=== PATIENT | female | born 1995 | race Caucasian/White ===

== ENCOUNTER → 2025-02-06 | Outpatient (CLI) | payer OTHER, SELFPAY ==
--- OUTSIDE RECORDS SUMMARY | 2025-02-06 12:08 | XMS RPT_ITS | CCD ---
Author Organization [facility] Inform ion Partnership [facility] Care Team Providers Care Mental Retardation Nurse Name Role Phone AMAN MALAVE Unavailable Unavailable FitzLoren mccall Unavailable Saundra Kaufman Unavailable Unavailable Gagandeep Babb MD Primary Care Provider Gagandeep Babb MD Primary Care Provider Gagandeep Babb MD Primary Care Provider KOURTNEY CHAVARRIA Attending Unavailable GAGANDEEP BABB Primary Care Unavailable HENRRY SIMS Referring Unavailable GAGANDEEP BABB Primary Care Unavailable HENRRY SIMS Attending Unavailable GAGANDEEP BABB Primary Care Unavailable Medications Current Medications Medication Drug Class(es) Dates Sig (Normalized) Sig (Original) busPIRone hydrochloride 30 mg oral tablet (5 sources) Start: 02-20-2021 busPIRone HCl 30 mg tablet Takes 10mg twice daily 02/20/2021 Active Comment on above: Takes 10mg twice nicolasa ly levonorgestrel 0.534196 mg/hr intrauterine system (10 sources) Progestin, Progestin-containi ng Intrauterine Device Start: 04-01-2020 End: 03-31-2025 levonorgestrel (MIRENA) 20 mcg/24 hours (5 yrs) 52 mg IUD Indications: Encounter for IUD insertion 1 Each by INTRAUTERINE route as directed. 1 Each 0 04/01/2020 03/31/2025 Active Comment on above: 1 Each by INTRAUTERI NE route as directed. 1 Each by INTRAUTERI NE route one time only. SUMAtriptan 100 mg oral tablet (5 sources) Serotonin-1b and Serotonin-1d Receptor Agonist SUMAtriptan (IMITREX) 100 mg tablet Take 100 mg by mouth as needed. Active Comment on above: Take 100 mg by mouth as needed. Problems Active Problems Problem Classification Problem Date Documented Da te Episodic/Chronic Immunizations and screening for infectious disease (5 sources) Contact with and (suspected) exposure to other viral communicable diseases; Translations: [Patient encounter status] Onset: 01-10-2025 01-02-2020 Episodic Joint disorders and dislocations; trauma-related (1 source) Derangement of medial meniscus due to injury of knee; Translations: [Derangement of unspecified medial meniscus due to old tear or injury, right knee] 02-08-2024 Chronic Other non-traumatic joint disorders (1 source) Pain in right knee; Translations: [Pain in joint, lower leg] 02-08-2024 Episodic Other non-traumatic joint disorders (1 source) Effusion of right knee joint; Translations: [Effusion, right knee] 02-08-2024 Episodic Other screening for suspected conditions (not mental disorders or infectious disease) (2 sources) Cancer cervix screening status; Translations: [Encounter for screening for malignant neoplasm of cervix] Onset: 01-10-2025 01-10-2025 Episodic Residual codes; unclassified (1 source) Pain; Translations: [Pain, unspecified] 02-08-2024 Episodic Unclassified (1 source) Laceration without foreign body of left ear, initial encounter / S01.312A(ICD-10) Onset: 05-19-2017 Unclassified (1 source) Unknown / UNK(Unknown) Onset: 05-19-2017 Unclassified (1 source) Laceration / [id number]() Onset: 05-19-2017 Past or Other Problems Problem Classification Problem Date Documented Da te Episodic/Chronic Other injuries and conditions due to external causes (1 source) Laceration - injury; Translations: [Laceration] Onset: 05-19-2017 Episodic Residual codes; unclassified (1 source) Pain, unspecified; Translations: [Pain] Onset: 02-08-2024 Episodic Unclassified (1 source) Laceration without foreign body of left ear, initial encounter; Translations: [Laceration without foreign body of left ear, initial encounter] Onset: 05-19-2017 Unclassified (1 source) laceration to left ear Onset: 05-19-2017 Unclassified (1 source) Exposure to SARS virus Results Test Name Value Interpretation Reference Range Facility [facility] 01-10-2025 CNOV Office Visit (OBGYWM ) KACEY ALLISON ([id number]) 1995 F Date Time Provider Department 01/10/25 2:20 PM KOURTNEY CHAVARRIA During your visit today, we recorded the following information about you: Blood pressure Weight Height 112/78 76.7 kg 1.702 m Kourtney Chavarria MD 01/10/2025 4:55 PM Signed Director Community Organization offered: Patient declines. Kacey is a 29 year old who presents for an annual gynecologic exam without complaints. Age at Menarche: 16 Still get period: No, mirena iud Menses: no menses - Mirena IUD Menstrual flow: N/A Bleeding amount bothersome: N/A Bleeding between periods: N/A Period symptoms: Acne, Breast tenderness, Cramps, and Mood change Sexually active: Yes Time with current partner: N/A Contraception: IUD Contraception frequency: Always HPV vaccine: Yes HPV:N/A Last pap smear: 04/23/2021, normal History of abnormal pap: No Colposcopy: No. Leep: No. Cone biopsy: No. Bothersome pelvic pain: No Last mammogram: never OB History Gravida0 Para0 Term0 Preterm0 AB0 Living0 SAB0 IAB0 Ectopic0 Multiple0 Live Births0 Manager Drug History LMP: 04/24/2015, IUD Age at Menarche: Age at First : Age at Menopause: Manager Drug History Comments: Sexual Activity: Yes; Male; Mirena 04/01/2020 Contraception: I.U.D. PAST MEDICAL HISTORY Diagnosis Date Migraine PAST SURGICAL HISTORY Procedure Laterality Date INSERTION OF IUD 04/01/2020 PAST SURGICAL HISTORY OF surgery on both feet in 7th grade FAMILY HISTORY Problem Relation Age of Onset None Mother None Father No Known Problems Sister No Known Problems Brother SOCIAL HISTORY Social History Tobacco Use Smoking status: Never Smokeless tobacco: Never Vaping Use Vaping status: Never Used Substance Use Topics Alcohol use: Yes Drug use: No REVIEW OF SYSTEMS Abdomen: No abdominal pain, nausea, vomiting, diarrhea, or constipation. Bladder: No dysuria, gross hematuria, urinary frequency, urinary urgency, or incontinence. Breast: No breast lumps, nipple d/c, overlying skin changes, redness or skin retraction. Allergies and current medication updated:Yes SENSITIVE EXAM: The sensitive examination was discussed with the Patient or Patient's Authorized Vacuum Plastic Forming Machine Operator. As applicable, any other physician, advance practice provider, medical student, or other health professional student that will be observing or involved in the sensitive examination for educational or training purposes was discussed with the Patient or Authorized Vacuum Plastic Forming Machine Operator. The Patient or Authorized Vacuum Plastic Forming Machine Operator has agreed to proceed with the sensitive examination. (Sensitive examination includes inspection and/or palpation of the breasts, pelvis, prostate and anorectal regions). EXAM: BP 112/78 Ht 5' 7 (1.70m) Wt 169 lb 3.2 oz (76.7kg) LMP 04/24/2015 BMI 26.49 kg/(m2). GENERAL: pleasant, female in no apparent distress HEENT: Normocephalic and atraumatic NECK: full range of motion DERMATOLOGY: Normal, without lesions, non-icteric, and non-hirsute BREAST: soft, non-tender, symmetric, no dominant mass, normal nipple-areolar complex, no lymphadenopathy, and no nipple discharge CHEST: Normal inspiratory effort ABDOMEN: soft, non-tender, and no masses PELVIC: external genitalia normal, normal Bartholin's glands, urethra, [place]'s glands, no vulvar lesions, no cervical lesions, good vaginal support, physiologic discharge present, normal appearing perineal body and perianal region, IUD strings visible BIMANUAL: uterus normal size, shape and consistency, no adnexal masses, and non-tender RECTOVAGINAL: deferred. NEURO: exam grossly non-focal EXTREMITIES: normal ASSESSMENT/PLAN: 1) Health maintenance: Pap done with reflex HPV. Nutrition, exercise and routine health maintenance exams reviewed. HPV vaccine: completed series 2) Contraception: IUD. Contraceptive options reviewed and information provided. 3) STD screening: Declined STD check. 4) Follow up one year or sooner as needed Kourtney Chavarria DO Allergies As of Date: 01/10/2025 (No Known Allergies) Date Reviewed: 01/10/2025 Reviewed by: Ingrid Palacios MA - Fully Assessed Reason for Visit: Well Woman [1463] Primary Visit Diagnosis:Encounter for gynecological examination (general) (routine) without abnormal findings [Z01.419] Other Visit Diagnoses:Screening for cervical cancer [Z12.4] Encounter for screening for human papillomavirus (HPV) [Z11.51] Order(s):PAP TEST [[id number]] Order #: [id number]. #:[id number] Prescriptions as of 01/10/2025 - busPIRone HCl 30 mg tablet Takes 10mg twice daily - levonorgestrel (MIRENA) 20 mcg/24 hours (5 yrs) 52 mg IUD 1 Each by INTRAUTERINE route as directed. - levonorgestrel (MIRENA) 20 mcg/24 hr (5 years) IUD 1 Each by INTRAUTERINE route one time only. - SUMAtriptan (IMITREX) 100 mg tab (more content not included)... Normal [facility] PAP TESTon 01-10-2025 ADEQUACY Normal [facility] Comment on above: Order Comment: Speci men Type: FLUID SPECIMEN Ordering Facility: [facility] Address: [address] [place] [address] Result Comment: Sati sfactory for interpretation. Transformation zone present Performed By: #### L [id number] #### [facility] CLIA [id number] [address] [place] [address] [place] CASE REPORT Normal [facility] Comment on above: Order Comment: Speci men Type: FLUID SPECIMEN Ordering Facility: [facility] Address: [address] [place] [address] Result Comment: Gyne cologic Cytology Report Case: [id number] Authorizing Provider: Kourtney Chavarria MD Collected: 01/10/2025 03:00 PM Ordering Location: OB/Gynecology Received: 01/10/2025 04:42 PM First Screen: Don Kaur, CT, ASCP Specimen: Pap Test, ThinPrep, Cervix Performed By: #### L [id number] #### [facility] CLIA [id number] [address] [place] [address] [place] CLINICAL HISTORY, CYTOLOGY, METAL MINER BLASTING Intra Uterine Device, No Menses Normal [facility] Comment on above: Order Comment: Speci men Type: FLUID SPECIMEN Ordering Facility: [facility] Address: [address] [place] [address] Performed By: #### L [id number] #### [facility] CLIA [id number] [address] [place] [address] [place] FINAL PERFORMING LAB Normal [facility] Comment on above: Order Comment: Speci men Type: FLUID SPECIMEN Ordering Facility: [facility] Address: [address] [place] [address] Result Comment: Tech nical component, skidway man screening performed at: [facility], [address] [place] [address] CLIA: [id number] Diagnostic interpretation performed at: [facility], [address] [place] [address] CLIA# [id number] Laborer Tin Can: Kurtis Acuña MD Performed By: #### L [id number] #### [facility] CLIA [id number] [address] [place] [address] [place] INTERPRETATION, CYTOLOGY, METAL MINER BLASTING Normal [facility] Comment on above: Order Comment: Speci men Type: FLUID SPECIMEN Ordering Facility: [facility] Address: [address] [place] [address] Result Comment: Nega tive for intraepithelial lesion or malignancy. at 0849 EDT Performed By: #### L [id number] #### [facility] CLIA [id number] [address] [place] [address] [place] PAP DISCLAIMER COMMENT The Pap Smear is a screening test for cervical cancer. False negative results occur with all screening tests, emphasizing the need for rescreening at recommended intervals, and clinical correlation. Normal [facility] Comment on above: Order Comment: Speci men Type: FLUID SPECIMEN Ordering Facility: [facility] Address: [address] [place] [address] Performed By: #### L [id number] #### [facility] CLIA [id number] [address] [place] [address] [place] PAP OVERNIGHT CAREGIVER COMMENT This specimen has been analyzed by the FDA-approved [employer]TM System, which uses digital imaging and an enhanced artificial intelligence image analysis algorithm to identify villegas of interest on the microscopic slide, to assist the clinical data coordinator and pathologist in evaluating cells on ThinPrep Pap tests. Following analysis, villegas of interest on the microscopic slide selected by the algorithm are reviewed by a clinical data coordinator. If a sample requires hierarchical review, the pathologist will review the same villegas of interest selected by the algorithm prior to final interpretation. Normal [facility] Comment on above: Order Comment: Speci men Type: FLUID SPECIMEN Ordering Facility: [facility] Address: [address] [place] [address] Performed By: #### L [id number] #### [facility] CLIA [id number] [address] [place] [address] [facility] 02-08-2024 CNOV Office Visit (ORTHSO ) KACEY ALLISON ([id number]) 1995 F Date Time Provider Department 02/08/24 5:25 PM HENRRY SIMS ORTHSO During your visit today, we recorded the following information about you: Henrry Sims PA-C 02/09/2024 12:29 AM Signed [facility] CHIEF COMPLAINT(CC): Right knee HISTORY OF PRESENT ILLNESS (HPI): PAIN EVALUATION 02/08/2024 1748 Pain Level: 3 Pain Location: Knee-Right Description: Sharp Duration Amount of Time: 3 Duration Units: Weeks Frequency: Continuous Intervention/Comfort measure: -- ice Patient is a 28 year old female who presents to [facility] today with complaint of right knee pain that started 3 weeks ago with no injury. Patient denies prior injury, surgery, trauma to this area. They have not been seen yet for this complaint. Patient denies numbness, tingling, weakness, buckling, popping, catching or giving out of involved joint. Patient denies bruising, warmth, redness, mild swelling. Patient complains of discomfort at medial right knee and increased with prolonged walk, stair negotiaition. Patient reports that they have tried ice, rest, stretch,Ibuprofen, with some relief. REVIEW OF SYMPTOMS (ROS): Constitutional: Any recent fevers? No Cardiovascular: Any chest pain? No Respiratory: Any shortness or breath? No Gastrointestinal: Any abdominal discomfort? No Integumentary: Any recent skin changes or rashes? No Neurologic: Any numbness or tingling? See Above Endocrine: Any diagnosis of diabetes? No Hematologic: Any recent bleeding episodes? No MEDICAL HISTORY: PAST MEDICAL HISTORY No date: Migraine PHYSICAL EXAMINATION: Patient's vitals and nursing notes were reviewed. Vitals: [facility] 04/24/2015 Skin: Skin color, texture, turgor normal, no suspicious rashes or lesions noted Psychiatric: mood and affect are appropriate, patient is oriented to time, place and person General Appearance: Well appearing, alert, in no acute distress, well-hydrated, and well nourished Cardiovascular: pedal pulses normal, no signs of upper or lower extremity edema Respiratory: no respiratory distress, no audible wheezing, no labored breathing, symmetric thoracic excursion Neurologic: no pathologic reflexes, sensation is grossly intact Lymphatic: no lymph node enlargement noted in the examined area Knee Examination Right Knee Skin No evidence of eythema, warmth, bruising, abrasions, scars, swelling, atrophy,masses or deformity about bilateral lower extremities. Effusion No effusion Alignment normal Range of motion Normal range of motion Quadriceps examination full (5/5) quadriceps strength bilaterally without signs of atrophy Patellar examination Normal patellar mobility Tenderness medial joint line Meniscus Postive medial Dl's/Thessaly's testing Stability Collateral and cruciate knee ligaments (ACL/PCL/LCL/MCL) are all intact with no significant laxity noted bilaterally Additional Testing no significant restriction in hip range of motion and no contribution to the knee complaints today Heel walking and Toe walking are WNL. IMAGING: Final results and radiologist's interpretation, available in the [facility] health record. Images were reviewed with the patient/family members in the office today. My personal interpretation of the performed imaging is no acute bony abnormality. IMPRESSION: No acute radiographic findings. 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 Gentle AROM and stretching as tolerated. Voltaren gel topically for inflammation Physical Therapy eval and treat Ortho follow up with me in 1 month as needed. Detailed instructions were reviewed with the patient and all questions were answered in detail. Patient voiced understanding and compliance with the above plan. We discussed emergent need to return to the express care or go to the emergency department. We discussed red flags associated with this condition and emergent treatment if they present. BOUBACAR Lucas, Henrry Barron PA-C 02/08/2024 6:11 PM Signed Thank you for trusting us with the care of your sports medicine injury/needs. Today we discussed your condition and next steps in management. You have been diagnosed with a knee sprain. KNEE SPRAIN (GENERAL) You have been seen for a knee sprain. A sprain is an injury to a ligament, which is a type of connective tissue (soft tissue). A sprain varies depending on severity of injury and is usually a tear or partial tear of the ligament. Sprains can (more content not included)... Normal [facility] XR KNEE 4V AP/PA BOTH+LAT/ME R RTon 02-08-2024 XR KNEE 4V AP/PA BOTH+LAT/MICHELE RT * * *Final Report* * * DATE OF EXAM: Feb 08 2024 5:43PM SOX 5203 - XR KNEE 4V AP/PA BOTH+LAT/MICHELE RT / PROCEDURE REASON: Pain * * * * Physician Interpretation * * * * EXAMINATION: XR KNEE 4V AP/PA BOTH+LAT/MICHELE RT HISTORY: pain at the medial aspect of the right knee/no injury Pain . TECHNIQUE: XR KNEE 4V AP/PA BOTH+LAT/MICHELE RT Laterality: RIGHT Number of different views (projections): 4 M: XB_1 COMPARISON: RESULT: Normal right knee joint spaces. Small to moderate right knee joint effusion. No acute bone destruction. No acute fracture or dislocation. There are no bony erosions. IMPRESSION: No acute radiographic findings. Supervisor [employer] Farming: [facility] Transcribe Date/Time: Feb 08 2024 5:44P Dictated by : ANGIE ANDERSON MD This examination was interpreted and the report reviewed and electronically signed by: ANGIE ANDERSON MD on Feb 08 2024 5:45PM EST [id number] Normal [facility] XR Knee - right 4 Viewson IMPRESSION: No acute radiographic findings. Supervisor [employer]: PSCB Transcribe Date/Time: Feb 08 2024 5:44P Dictated by : ANGIE ANDERSON MD This examination was interpreted and the report reviewed and electronically signed by: ANGIE ANDERSON MD on Feb 08 2024 5:45PM EST DIVISION OF RADIOLOGY * * *Final Report* * * DATE OF EXAM: Feb 08 2024 5:43PM SOX 5203 - XR KNEE 4V AP/PA BOTH+LAT/MICHELE RT / PROCEDURE REASON: Pain * * * * Physician Interpretation * * * * EXAMINATION: XR KNEE 4V AP/PA BOTH+LAT/MICHELE RT HISTORY: pain at the medial aspect of the right knee/no injury Pain . TECHNIQUE: XR KNEE 4V AP/PA BOTH+LAT/MICHELE RT Laterality: RIGHT Number of different views (projections): 4 M: XB_1 COMPARISON: RESULT: Normal right knee joint spaces. Small to moderate right knee joint effusion. No acute bone destruction. No acute fracture or dislocation. There are no bony erosions. DIVISION OF RADIOLOGY Provider, [facility] - 02/08/2024 * * *Final Report* * * DATE OF EXAM: Feb 08 2024 5:43PM SOX 5203 - XR KNEE 4V AP/PA BOTH+LAT/MICHELE RT / PROCEDURE REASON: Pain * * * * Physician Interpretation * * * * EXAMINATION: XR KNEE 4V AP/PA BOTH+LAT/MICHELE RT HISTORY: pain at the medial aspect of the right knee/no injury Pain . TECHNIQUE: XR KNEE 4V AP/PA BOTH+LAT/MICHELE RT Laterality: RIGHT Number of different views (projections): 4 M: XB_1 COMPARISON: RESULT: Normal right knee joint spaces. Small to moderate right knee joint effusion. No acute bone destruction. No acute fracture or dislocation. There are no bony erosions. IMPRESSION IMPRESSION: No acute radiographic findings. Supervisor [employer]: NGOZI Transcribe Date/Time: Feb 08 2024 5:44P Dictated by : ANGIE ANDERSON MD This examination was interpreted and the report reviewed and electronically signed by: ANGIE ANDERSON MD on Feb 08 2024 5:45PM EST [facility] Radiology Study observation (narrative) [facility] XR Knee - right 4 ViewsOrder ed By: [facility] Provider on 02-08-2024 [facility] ic 2019 Novel Coronavirus (COVI D-19), VERONICA ([id number])Ordered By: Refrigeration Specialist on 01-02-20202018 Novel Coronavirus (COVID-19), VERONICA ([id number]) Not Detected Normal [facility] Work Phone: Comment on above: This test was develo ped and its performance characteristics determinedby [employer]. This test has not been FDA cleared orapproved. This test has been authorized by FDA under an Emergency UseAuthorization (EUA). This test is only authorized for the duration oftime the declaration that circumstances exist justifying theauthorization of the emergency use of in vitro diagnostic tests fordetection of SARS-CoV-2 virus and/or diagnosis of COVID-19 infectionunder section 564(b)(1) of the Act, 21 U.S.C. 360bbb-3(b)(1), unlessthe authorization is terminated or revoked sooner.When diagnostic testing is negative, the possibility of a falsenegative result should be considered in the context of a patient'srecent exposures and the presence of clinical signs and symptomsconsistent with COVID-19. An individual without symptoms of COVID-19and who is not shedding SARS-CoV-2 virus would expect to have anegative (not detected) result in this assay. PERFORMED BY: [employer] [facility] [id number] [facility] [place] [id number] Vital Signs Date Time Vital Sign Value Performing Clinician Heriberto buckley 01-10-2025 14:29-0400 Body height 170.2 cm Kourtney Chavarria MD Work Phone: [facility] 01-10-2025 14:29-0400 Body mass index (BMI) [Ratio] 26.5 kg/m2 Kourtney Chavarria MD Work Phone: [facility] 01-10-2025 14:29-0400 Body weight 76.75 kg Kourtney Chavarria MD Work Phone: [facility] 01-10-2025 14:29-0400 Diastolic blood pressure 78 mm[Hg] Kourtney Chavarria MD Work Phone: [facility] 01-10-2025 14:29-0400 Systolic blood pressure 112 mm[Hg] Kourtney Chavarria MD Work Phone: [facility] 05-30-2022 14:23-0500 Body height 168.9 cm Kourtney Chavarria MD Work Phone: [facility] 05-30-2022 14:23-0500 Body weight 81.74 kg Kourtney Chavarria MD Work Phone: [facility] 05-30-2022 14:23-0500 Diastolic blood pressure 74 mm[Hg] Kourtney Chavarria MD Work Phone: [facility] 05-30-2022 14:23-0500 Systolic blood pressure 110 mm[Hg] Kourtney Chavarria MD Work Phone: [facility] 02-02-2022 10:15-0400 Body weight 84.28 kg Kourtney Chavarria MD Work Phone: [facility] 02-02-2022 10:15-0400 Diastolic blood pressure 78 mm[Hg] Kourtney Chavarria MD Work Phone: [facility] 02-02-2022 10:15-0400 Systolic blood pressure 120 mm[Hg] Kourtney Chavarria MD Work Phone: [facility] Encounters Encounter Date Encounter Type Care Provider Facility Start: 01-10-2025 End: 01-10-2025 Patient encounter procedure Kourtney Chavarria MD Work Phone: OB/Gynecology Comment on above: Encounter for gyneco logical examination (general) (routine) without abnormal findings (Primary Dx); Screening for cervical cancer; Encounter for screening for human papillomavirus (HPV) Start: 01-10-2025 End: 01-10-2025 Patient encounter status Kourtney Chavarria MD Work Phone: [facility] Start: 01-10-2025 End: 01-10-2025 ambulatory KOURTNEY CHAVARRIA Facility:[facility] Start: 01-10-2025 Encounter for gynecological examination (general) (routine) without abnormal findings KOURTNEY CHAVARRIA [facility] Start: 02-08-2024 End: 02-08-2024 ambulatory HENRRY SIMS Facility:[facility] Start: 02-08-2024 End: 02-08-2024 Office outpatient new 30 minutes Henrry ONTIVEROS-C Work Phone: Orthopaedics Comment on above: Acute pain of right knee (Primary Dx); Derangement of medial meniscus of right knee 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; Effusion of knee joint right Start: 02-08-2024 End: 02-08-2024 Subsequent hospital visit by physician Esperanza [facility] Angelica Work Phone: Radiology Comment on above: Pain [R52] Start: 05-30-2022 End: 05-30-2022 Patient encounter procedure Kourtney Chavarria MD Work Phone: OB/Gynecology Comment on above: Encounter for gyneco logical examination (general) (routine) without abnormal findings (Primary Dx); Need for influenza vaccination Start: 05-30-2022 End: 05-30-2022 Patient encounter status Kourtney Chavarria MD Work Phone: OB/Gynecology Start: 02-02-2022 End: 02-02-2022 Patient encounter procedure Kourtney Chavarria MD Work Phone: OB/Gynecology Comment on above: Screen for STD (sexu ally transmitted disease) (Primary Dx) Start: 01-02-2020 End: 01-23-2020 Office outpatient visit 15 minutes Loren To [facility] Internal Medicine Start: 05-19-2017 End: 05-19-2017 Emergency department patient visit AMAN Nathan FRIEDA [facility] Procedures Date Procedure Procedure Detail Performing Clinician Start: 02-08-2024 Radiologic exam knee complete 4/more views Henrry Sims PA-C Work Phone: Start: 05-30-2022 INFLUENZA VACCINE QUADRIVALENT 6 MO - 64 YRS IM Kourtney Chavarria MD Work Phone: Plan of Treatment Date Care Activity Detail Author Start: 12-17-2028 Urine microalbumin profile DTaP,Tdap,Td Vaccine (4 - Tdap) [facility] Start: 03-03-2025 Influenza vaccination Influenza Vacc ine (#1) [facility] Start: 04-23-2024 PAP TESTING PAP TESTING [facility] Start: 04-23-2024 Screening for malign ant neoplasm of cervix Cervical Cancer Screening [facility] Start: 03-03-2024 Covid-19 Vaccine ( season) Covid-19 Vaccine ( season) [facility] Start: 03-03-2024 Covid-19 Vaccine ( season) Covid-19 Vaccine ( season) [facility] Start: 03-03-2024 Influenza vaccination Influenza Vacc ine (#1) [facility] Start: 03-03-2023 Covid-19 Vaccine ( season) Covid-19 Vaccine ( season) [facility] Start: 03-22-2022 COVID-19 VACCINE (3 - Booster for Pfizer series) COVID-19 VACCINE (3 - Booster for Pfizer series) [facility] Start: 03-03-2022 Influenza vaccination INFLUENZA (#1) [facility] Start: 02-02-2022 End: 04-04-2022 Hepatitis B virus surface Ab [Presence] in Serum by Immunoassay [facility] Work Phone: Comment on above: Expected: 02/02/2022 , Expires: 04/04/2022 Start: 02-02-2022 End: 04-04-2022 Hepatitis C virus Ab [Presence] in Serum [facility] Work Phone: Comment on above: Expected: 02/02/2022 , Expires: 04/04/2022 Start: 02-02-2022 End: 04-04-2022 HIV 1+2 Ab [Presence] in Serum or Plasma by Immunoassay [facility] Work Phone: Comment on above: Expected: 02/02/2022 , Expires: 04/04/2022 Start: 02-02-2022 End: 04-04-2022 SYPHILIS TOTAL W/REFLEX [facility] Work Phone: Comment on above: Expected: 02/02/2022 , Expires: 04/04/2022 Start: 02-02-2022 End: 04-04-2022 Trichomonas vaginalis Ag [Presence] in Genital specimen by Immunoassay [facility] Work Phone: Comment on above: Expected: 02/02/2022 , Expires: 04/04/2022 Start: 12-15-2021 COVID-19 VACCINE (3 - Booster for Pfizer series) COVID-19 VACCINE (3 - Booster for Pfizer series) [facility] Start: 07-03-2021 DEPRESSION ASSESSMENT DEPRESSION ASS ESSMENT [facility] Start: 10-26-2014 Hepatitis B Vaccine (1 of 3 - 19+ 3-dose series) Hepatitis B Vaccine (1 of 3 - 19+ 3-dose series) [facility] Start: 10-26-2014 Urine microalbumin profile DTAP,TDAP,TD (1 - Tdap) [facility] Start: 10-26-2013 Anxiety Screening Anxiety Screening [facility] Start: 10-26-2013 Depression Screening Depression Scre ening [facility] Start: 10-26-2009 PEDS TO ADULT TRANSITION ANNUAL ASSESSMENT PEDS TO ADULT TRANSITION ANNUAL ASSESSMENT [facility] Start: 2007 Adult depression screening assessment DEPRESSION SCREENING [facility] Start: 2007 PEDS TO ADULT TRANSITION INITIAL DISCUSSION PEDS TO ADULT TRANSITION INITIAL DISCUSSION [facility] Start: 1995 HEPATITIS B (1 of 3 - 3-dose series) HEPATITIS B (1 of 3 - 3-dose series) [facility] Chlamydia trachomatis+Neisseria gonorrhoeae DNA [Presence] in Unspecified specimen by VERONICA with probe detection GC/CHLAMYDIA DNA DET Lab Routine Screen for STD (sexually transmitted disease) 02/02/2022 10:50 AM EDT [facility] Work Phone: PAP TEST PAP TEST Lab Juan aston Encounter for gynecological examination (general) (routine) without abnormal findings Screening for cervical cancer Encounter for screening for human papillomavirus (HPV) 01/10/2025 3:00 PM EDT [facility] Work Phone: Immunizations Immunization Date Immunization Notes Care Provider Remy jackermelinda 05-15-2023 typhoid capsular polysaccharide vaccine Kourtney Chavarria MD Work Phone: [facility] 05-11-2023 influenza, injectabl e, quadrivalent, preservative free Kourtney Chavarria MD Work Phone: [facility] 05-11-2023 influenza virus vacc ine, unspecified formulation Henrry Sims PA-C Work Phone: [facility] 05-30-2022 influenza, injectabl e, quadrivalent, contains preservative Kourntey Chavarria MD Work Phone: [facility] 10-20-2021 COVID-19 original vaccine, age 12+ yr, monovalent (PFIZER-BIONTECH - MUSA TOP) Kourtney Chavarria MD Work Phone: [facility] 09-24-2021 COVID-19 original vaccine, age 12+ yr, monovalent (PFIZER-BIONTECH - MUSA TOP) Kourtney Chavarria MD Work Phone: [facility] 04-23-2021 influenza, injectabl e, quadrivalent, contains preservative Kourtney Chavarria MD Work Phone: [facility] Work Phone: 04-23-2020 influenza, injectabl e, quadrivalent, contains preservative Kourtney Chavarria MD Work Phone: [facility] 04-24-2019 Influenza, injectabl e, Madin Megha Canine Kidney, preservative free, quadrivalent Kourtney Chavarria MD Work Phone: [facility] 12-17-2018 tetanus and diphther ia toxoids, adsorbed, preservative free, for adult use (2 Lf of tetanus toxoid and 2 Lf of diphtheria toxoid) Kourtney Chavarria MD Work Phone: [facility] 04-10-2018 influenza, injectabl e, quadrivalent, preservative free Kourtney Chavarria MD Work Phone: [facility] 04-06-2017 influenza, seasonal, injectable Kourtney Chavarria MD Work Phone: [facility] 05-08-2016 influenza, injectabl e, quadrivalent, preservative free Kourtney Chavarria MD Work Phone: [facility] 04-10-2015 influenza, seasonal, injectable, preservative free Kourtney Chavarria MD Work Phone: [facility] 01-14-2014 meningococcal polysaccharide (groups A, C, Y and W-135) diphtheria toxoid conjugate vaccine (MCV4P) Kourtney Chavarria MD Work Phone: [facility] 11-07-2008 diphtheria, tetanus toxoids and acellular pertussis vaccine, unspecified formulation Kourtney Chavarria MD Work Phone: [facility] 10-28-1997 varicella virus vaccine Kourtney Chavarria MD Work Phone: [facility] 07-11-1997 diphtheria, tetanus toxoids and acellular pertussis vaccine, unspecified formulation Kourtney Chavarria MD Work Phone: [facility] Payers Date Payer Category Payer Private Health Insurance [id number] 2023 Private Health Insurance [id number] 2021 Unknown 2021 Unknown [employer] PPO OOS [id number] 2021-Present [phone] [facility] [id number] [place] [address] PPO [id number] Self-pay SELF PAY INSURANCE [id number] Unknown [id number] Unknown SELF PAY INSURANCE [id number] [facility] [id number] Social History Date Type Detail Facility Tobacco smoking stat us NHIS Unknown if ever smoked [facility] Work Phone: Start: 1995 Sex Assigned At Female [facility] Work Phone: Start: 12-08-2014 End: 05-30-2022 Tobacco smoking status NHIS Never smoked tobacco [facility] Start: 12-08-2014 End: 05-30-2022 Tobacco use and exposure Smokeless tobacco non-user [facility] Start: 02-02-2022 End: 01-10-2025 Alcohol intake Current drinker of alcohol (finding) [facility] Start: 08-28-2019 History SDOH Alcohol Frequency 3 [facility] Start: 08-28-2019 History SDOH Social Connections Phone 4 [facility] Start: 08-28-2019 History SDOH Social Connections Get Together 5 [facility] Start: 08-28-2019 History SDOH Social Connections Holiness 1 [facility] Start: 08-28-2019 History SDOH Social Connections Living 7 [facility] Start: 1995 Sex Assigned At Not on file [facility] Start: 01-23-2022 End: 02-02-2022 Exposure to SARS-CoV-2 (event) Not sure [facility] Start: 08-28-2019 End: 01-10-2025 History of Social function [facility] Start: 08-28-2019 End: 01-10-2025 Social connection and isolation panel [facility] Do you belong to any clubs or organizations such as mandaeism groups, unions, fraternal or athletic groups, or school groups? Yes [facility] Are you now , , , , never or living with a partner? Never [facility] How often to you hav e a drink containing alcohol? 2-4 times a month [facility] How many standard dr inks containing alcohol do you have on a typical day? 5 or 6 [facility] How often do you hav e 6 or more drinks on 1 occasion? Monthly [facility] Do you feel stress - tense, restless, nervous, or anxious, or unable to sleep at night because your mind is troubled all the time - these days [OSQ] Not at all [facility] National Score (1-10 0), lower number is lower risk 34 [facility] Functional Status Date Assessment Result Facility 12-08-2014 Are you deaf, or do you have serious difficulty hearing No 12/08/2014 9:11 AM Mari Malone MA No [facility] 12-08-2014 Are you blind, or do you have serious difficulty seeing, even when wearing glasses No 12/08/2014 9:11 AM Mari Malone MA No [facility] 12-08-2014 Do you have serious difficulty walking or climbing stairs No 12/08/2014 9:11 AM EDMari Low MA No [facility] 12-08-2014 Do you have difficul ty dressing or bathing No 12/08/2014 9:11 AM Mari Malone MA No [facility] 12-08-2014 Because of a physica l, mental, or emotional condition, do you have difficulty doing errands alone such as visiting a physician's office or shopping No 12/08/2014 9:11 AM Mari Malone MA [facility] Mental Status Date Assessment Result Facility 12-08-2014 Because of a physica l, mental, or emotional condition, do you have serious difficulty concentrating, remembering, or making decisions No 12/08/2014 9:11 AM Mari Malone MA [facility] Clinical Notes 02-02-2022 to 01-10-2025 Kourtney Chavarria MD - 01/10/2025 2:26 PM EDTPHenrry Bowden PA-C - 02/08/2024 5:51 PM Ita [employer] - 02/08/2024 5:30 PM Nayely Chavarria MD - 05/30/2022 2:16 PM EST Note Date & Type Note Facility 01-10-2025 Note HNO ID: [id number] Author: KOURTNEY CHAVARRIA MD Service: ? Author Type: Physician Type: Progress Notes Filed: 01/10/2025 16:55 Note Text: Director Community Organization offered: Patient declines. Kacey is a 29 year old who presents for an annual gynecologic exam without complaints. Age at Menarche: 16 Still get period: No, mirena iud Menses: no menses - Mirena IUD Menstrual flow: N/A Bleeding amount bothersome: N/A Bleeding between periods: N/A Period symptoms: Acne, Breast tenderness, Cramps, and Mood change Sexually active: Yes Time with current partner: N/A Contraception: IUD Contraception frequency: Always HPV vaccine: Yes HPV:N/A Last pap smear: 04/23/2021, normal History of abnormal pap: No Colposcopy: No. Leep: No. Cone biopsy: No. Bothersome pelvic pain: No Last mammogram: never OB History Gravida0 Para0 Term0 Preterm0 AB0 Living0 SAB0 IAB0 Ectopic0 Multiple0 Live Births0 Manager Drug History LMP: 04/24/2015, IUD Age at Menarche: Age at First : Age at Menopause: Manager Drug History Comments: Sexual Activity: Yes; Male; Mirena 04/01/2020 Contraception: I.U.D. PAST MEDICAL HISTORY Diagnosis Date Migraine PAST SURGICAL HISTORY Procedure Laterality Date INSERTION OF IUD 04/01/2020 PAST SURGICAL HISTORY OF surgery on both feet in 7th grade FAMILY HISTORY Problem Relation Age of Onset None Mother None Father No Known Problems Sister No Known Problems Brother SOCIAL HISTORY Social History Tobacco Use Smoking status: Never Smokeless tobacco: Never Vaping Use Vaping status: Never Used Substance Use Topics Alcohol use: Yes Drug use: No REVIEW OF SYSTEMS Abdomen: No abdominal pain, nausea, vomiting, diarrhea, or constipation. Bladder: No dysuria, gross hematuria, urinary frequency, urinary urgency, or incontinence. Breast: No breast lumps, nipple d/c, overlying skin changes, redness or skin retraction. Allergies and current medication updated:Yes SENSITIVE EXAM: The sensitive examination was discussed with the Patient or Patient's Authorized Vacuum Plastic Forming Machine Operator. As applicable, any other physician, advance practice provider, medical student, or other health professional student that will be observing or involved in the sensitive examination for educational or training purposes was discussed with the Patient or Authorized Vacuum Plastic Forming Machine Operator. The Patient or Authorized Vacuum Plastic Forming Machine Operator has agreed to proceed with the sensitive examination. (Sensitive examination includes inspection and/or palpation of the breasts, pelvis, prostate and anorectal regions). EXAM: BP 112/78 Ht 5' 7 (1.70m) Wt 169 lb 3.2 oz (76.7kg) LMP 04/24/2015 BMI 26.49 kg/(m2). GENERAL: pleasant, female in no apparent distress HEENT: Normocephalic and atraumatic NECK: full range of motion DERMATOLOGY: Normal, without lesions, non-icteric, and non-hirsute BREAST: soft, non-tender, symmetric, no dominant mass, normal nipple-areolar complex, no lymphadenopathy, and no nipple discharge CHEST: Normal inspiratory effort ABDOMEN: soft, non-tender, and no masses PELVIC: external genitalia normal, normal Bartholin's glands, urethra, [place]'s glands, no vulvar lesions, no cervical lesions, good vaginal support, physiologic discharge present, normal appearing perineal body and perianal region, IUD strings visible BIMANUAL: uterus normal size, shape and consistency, no adnexal masses, and non-tender RECTOVAGINAL: deferred. NEURO: exam grossly non-focal EXTREMITIES: normal ASSESSMENT/PLAN: 1) Health maintenance: Pap done with reflex HPV. Nutrition, exercise and routine health maintenance exams reviewed. HPV vaccine: completed series 2) Contraception: IUD. Contraceptive options reviewed and information provided. 3) STD screening: Declined STD check. 4) Follow up one year or sooner as needed Kourtney Chavarria DO [facility] 01-10-2025 History of Present illness Narrative Director Community Organization offered: Patient declines. Kacey is a 29 year old who presents for an annual gynecologic exam without complaints. Age at Menarche: 16 Still get period: No, mirena iud Menses: no menses - Mirena IUD Menstrual flow: N/A Bleeding amount bothersome: N/A Bleeding between periods: N/A Period symptoms: Acne, Breast tenderness, Cramps, and Mood change Sexually active: Yes Time with current partner: N/A Contraception: IUD Contraception frequency: Always HPV vaccine: Yes HPV:N/A Last pap smear: 04/23/2021, normal History of abnormal pap: No Colposcopy: No. Leep: No. Cone biopsy: No. Bothersome pelvic pain: No Last mammogram: never OB History Gravida0 Para0 Term0 Preterm0 AB0 Living0 SAB0 IAB0 Ectopic0 Multiple0 Live Births0 Manager Drug History LMP: 04/24/2015, IUD Age at Menarche: Age at First : Age at Menopause: Manager Drug History Comments: Sexual Activity: Yes; Male; Julianna 04/01/2020 Contraception: I.U.D. PAST MEDICAL HISTORY Diagnosis Date Migraine PAST SURGICAL HISTORY Procedure Laterality Date INSERTION OF IUD 04/01/2020 PAST SURGICAL HISTORY OF surgery on both feet in 7th grade FAMILY HISTORY Problem Relation Age of Onset None Mother None Father No Known Problems Sister No Known Problems Brother SOCIAL HISTORY Social History Tobacco Use Smoking status: Never Smokeless tobacco: Never Vaping Use Vaping status: Never Used Substance Use Topics Alcohol use: Yes Drug use: No REVIEW OF SYSTEMS Abdomen: No abdominal pain, nausea, vomiting, diarrhea, or constipation. Bladder: No dysuria, gross hematuria, urinary frequency, urinary urgency, or incontinence. Breast: No breast lumps, nipple d/c, overlying skin changes, redness or skin retraction. Allergies and current medication updated:Yes SENSITIVE EXAM: The sensitive examination was discussed with the Patient or Patient's Authorized Vacuum Plastic Forming Machine Operator. As applicable, any other physician, advance practice provider, medical student, or other health professional student that will be observing or involved in the sensitive examination for educational or training purposes was discussed with the Patient or Authorized Vacuum Plastic Forming Machine Operator. The Patient or Authorized Vacuum Plastic Forming Machine Operator has agreed to proceed with the sensitive examination. (Sensitive examination includes inspection and/or palpation of the breasts, pelvis, prostate and anorectal regions). EXAM: BP 112/78 Ht 5' 7 (1.70m) Wt 169 lb 3.2 oz (76.7kg) LMP 04/24/2015 BMI 26.49 kg/(m^2). GENERAL: pleasant, female in no apparent distress HEENT: Normocephalic and atraumatic NECK: full range of motion DERMATOLOGY: Normal, without lesions, non-icteric, and non-hirsute BREAST: soft, non-tender, symmetric, no dominant mass, normal nipple-areolar complex, no lymphadenopathy, and no nipple discharge CHEST: Normal inspiratory effort ABDOMEN: soft, non-tender, and no masses PELVIC: external genitalia normal, normal Bartholin's glands, urethra, [place]'s glands, no vulvar lesions, no cervical lesions, good vaginal support, physiologic discharge present, normal appearing perineal body and perianal region, IUD strings visible BIMANUAL: uterus normal size, shape and consistency, no adnexal masses, and non-tender RECTOVAGINAL: deferred. NEURO: exam grossly non-focal EXTREMITIES: normal ASSESSMENT/PLAN: 1) Health maintenance: Pap done with reflex HPV. Nutrition, exercise and routine health maintenance exams reviewed. HPV vaccine: completed series 2) Contraception: IUD. Contraceptive options reviewed and information provided. 3) STD screening: Declined STD check. 4) Follow up one year or sooner as needed Kourtney Chavarria DO documented in this encounter [facility] 02-08-2024 Instructions Henrry Sims PA-C - 02/08/2024 6:11 PM EDT Images from the original note were not included. Thank you for trusting us with the care of your sports medicine injury/needs. Today we discussed your condition and next steps in management. You have been diagnosed with a knee sprain. KNEE SPRAIN (GENERAL) You have been seen for a knee sprain. A sprain is an injury to a ligament, which is a type of connective tissue (soft tissue). A sprain varies depending on severity of injury and is usually a tear or partial tear of the ligament. Sprains can be as painful as broken bones. There are different degrees of injury. A first-degree sprain is a minor tear. With a third-degree sprain, there is often a chip in the bone torn away where the ligament attaches. The knee has 4 ligaments that are often injured: Anterior cruciate ligament (ACL) Posterior cruciate ligament (ACL) Medial collateral ligament (MCL) Lateral collateral ligament (LCL) Management: Sprains are treated with medicine to lower pain and bracing to reduce movement. Everyone's recovery is different and thus will take different times to heal. It can take several weeks for the body to heal and for you to become pain-free and may take even longer for pain-free return to activities. Gradual return to activities as directed by medical professional. Physical therapy can be helpful to improve healing time/axtlgm-qt-poybg/activity. If you were prescribed physical therapy today, please begin as soon as possible, unless told otherwise. Resting, Icing, Compressing and Elevating the injured area can be helpful to address pain and reduce swelling. Remember this as RICE. REST: Limit the use of the injured body part. ICE: By applying ice to the affected area, swelling and pain can be reduced. Place some ice cubes in a re-sealable (Ziploc ) bag and add some water. Put a thin washcloth between the bag and the skin. Apply the ice bag to the area for at least 20 minutes. Do this at least 4 times per day. It is okay to do this more often than directed. You can also do it for longer than directed. NEVER APPLY ICE DIRECTLY TO THE SKIN. COMPRESS: Compression means to apply pressure around the injured area such as with a splint, cast or an SON bandage. Compression decreases swelling and improves comfort. Compression should be tight enough to relieve swelling but not so tight as to decrease circulation. Increasing pain, numbness, tingling, or change in skin color, are all signs of decreased circulation. ELEVATE: Elevate the injured part. You can prop an injured leg on a chair while sitting, or on pillows while lying down. Anti-inflammatories (NSAIDs: Non-steroidal Anti-inflammatories): Advise taking the lowest effective dose for shortest amount of time. Therefore, start with lowest dose and stop when pain free. DO NOT take if you are on any type of blood thinners (Coumadin, Eliquis, Xarelto for example). DO NOT take these medications if you are taking another anti-inflammatory (such as Celebrex, Naprosyn, Relafen, Voltaren, Mobic, Anaprox, etc). DO NOT take if you have a history of bleeding ulcers in your stomach or history of kidney disease. If this should start to upset your stomach, stop taking it. - Naproxen (Aleve), one to two 220mg pills, up to twice a day, with food, for shortest duration needed, then on as needed basis -OR- - Ibuprofen (Advil, Motrin), 200mg pills (May take from 200mg to 800mg), up to three times a day, with food, for shortest duration needed, then on as needed basis. You may have been given a BRACE today to help with your pain and instability. The bracing helps to do the job that the ligaments do to support the knee and allow for healing. Wear the immobilizer as directed. You may remove the splint to sleep and bathe, unless otherwise directed. Continue gentle range of motion activities, as directed, to help with stiffness. Voltaren Gel has been recommended for you. Voltaren gel is an antiinflammatory gel that used to be only available through a prescription. Recently this gel has become available at retailers like [employer], and [employer] at the same strength as prescription. This gel is a TOPICAL ANTIINFLAMMATORY and can decrease inflammation locally. This gel needs to be applied 4x per day in order for it to work. Ice massage: Take paper or styrofoam cup and freeze water. Tear down side of cup to expose ice and rub over elbow, wiping water as ice melts. It will numb area in 2-3 minutes. You can then massage over the area with your fingers of your opposite hand for a few minutes to stimulate circulation. documented in this encounter [facility] 02-08-2024 Note HNO ID: [id number] Author: HENRRY SIMS PA-C Service: ? Author Type: Physician Sliver Lap Machine Tender Type: Progress Notes Filed: 02/09/2024 00:29 Note Text: [facility] CHIEF COMPLAINT(CC): Right knee HISTORY OF PRESENT ILLNESS (HPI): PAIN EVALUATION 02/08/2024 2478 Pain Level: 3 Pain Location: Knee-Right Description: Sharp Duration Amount of Time: 3 Duration Units: Weeks Frequency: Continuous Intervention/Comfort measure: -- ice Patient is a 28 year old female who presents to [facility] today with complaint of right knee pain that started 3 weeks ago with no injury. Patient denies prior injury, surgery, trauma to this area. They have not been seen yet for this complaint. Patient denies numbness, tingling, weakness, buckling, popping, catching or giving out of involved joint. Patient denies bruising, warmth, redness, mild swelling. Patient complains of discomfort at medial right knee and increased with prolonged walk, stair negotiaition. Patient reports that they have tried ice, rest, stretch,Ibuprofen, with some relief. REVIEW OF SYMPTOMS (ROS): Constitutional: Any recent fevers? No Cardiovascular: Any chest pain? No Respiratory: Any shortness or breath? No Gastrointestinal: Any abdominal discomfort? No Integumentary: Any recent skin changes or rashes? No Neurologic: Any numbness or tingling? See Above Endocrine: Any diagnosis of diabetes? No Hematologic: Any recent bleeding episodes? No MEDICAL HISTORY: PAST MEDICAL HISTORY No date: Migraine PHYSICAL EXAMINATION: Patient's vitals and nursing notes were reviewed. Vitals: LMP 04/24/2015 Skin: Skin color, texture, turgor normal, no suspicious rashes or lesions noted Psychiatric: mood and affect are appropriate, patient is oriented to time, place and person General Appearance: Well appearing, alert, in no acute distress, well-hydrated, and well nourished Cardiovascular: pedal pulses normal, no signs of upper or lower extremity edema Respiratory: no respiratory distress, no audible wheezing, no labored breathing, symmetric thoracic excursion Neurologic: no pathologic reflexes, sensation is grossly intact Lymphatic: no lymph node enlargement noted in the examined area Knee Examination Right Knee Skin No evidence of eythema, warmth, bruising, abrasions, scars, swelling, atrophy,masses or deformity about bilateral lower extremities. Effusion No effusion Alignment normal Range of motion Normal range of motion Quadriceps examination full (5/5) quadriceps strength bilaterally without signs of atrophy Patellar examination Normal patellar mobility Tenderness medial joint line Meniscus Postive medial Dl's/Thessaly's testing Stability Collateral and cruciate knee ligaments (ACL/PCL/LCL/MCL) are all intact with no significant laxity noted bilaterally Additional Testing no significant restriction in hip range of motion and no contribution to the knee complaints today Heel walking and Toe walking are WNL. IMAGING: Final results and radiologist's interpretation, available in the [facility] health record. Images were reviewed with the patient/family members in the office today. My personal interpretation of the performed imaging is no acute bony abnormality. IMPRESSION: No acute radiographic findings. 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 Gentle AROM and stretching as tolerated. Voltaren gel topically for inflammation Physical Therapy eval and treat Ortho follow up with me in 1 month as needed. Detailed instructions were reviewed with the patient and all questions were answered in detail. Patient voiced understanding and compliance with the above plan. We discussed emergent need to return to the express care or go to the emergency department. We discussed red flags associated with this condition and emergent treatment if they present. Henrry Sims PA-C [facility] 02-08-2024 History of Present illness Narrative Images from the original note were not included. [facility] CHIEF COMPLAINT(CC): Right knee HISTORY OF PRESENT ILLNESS (HPI): PAIN EVALUATION 02/08/2024 1748 Pain Level: 3 Pain Location: Knee-Right Description: Sharp Duration Amount of Time: 3 Duration Units: Weeks Frequency: Continuous Intervention/Comfort measure: -- ice Patient is a 28 year old female who presents to [facility] today with complaint of right knee pain that started 3 weeks ago with no injury. Patient denies prior injury, surgery, trauma to this area. They have not been seen yet for this complaint. Patient denies numbness, tingling, weakness, buckling, popping, catching or giving out of involved joint. Patient denies bruising, warmth, redness, mild swelling. Patient complains of discomfort at medial right knee and increased with prolonged walk, stair negotiaition. Patient reports that they have tried ice, rest, stretch,Ibuprofen, with some relief. REVIEW OF SYMPTOMS (ROS): Constitutional: Any recent fevers? No Cardiovascular: Any chest pain? No Respiratory: Any shortness or breath? No Gastrointestinal: Any abdominal discomfort? No Integumentary: Any recent skin changes or rashes? No Neurologic: Any numbness or tingling? See Above Endocrine: Any diagnosis of diabetes? No Hematologic: Any recent bleeding episodes? No MEDICAL HISTORY: PAST MEDICAL HISTORY No date: Migraine PHYSICAL EXAMINATION: Patient's vitals and nursing notes were reviewed. Vitals: LMP 04/24/2015 Skin: Skin color, texture, turgor normal, no suspicious rashes or lesions noted Psychiatric: mood and affect are appropriate, patient is oriented to time, place and person General Appearance: Well appearing, alert, in no acute distress, well-hydrated, and well nourished Cardiovascular: pedal pulses normal, no signs of upper or lower extremity edema Respiratory: no respiratory distress, no audible wheezing, no labored breathing, symmetric thoracic excursion Neurologic: no pathologic reflexes, sensation is grossly intact Lymphatic: no lymph node enlargement noted in the examined area Knee Examination Right Knee Skin No evidence of eythema, warmth, bruising, abrasions, scars, swelling, atrophy,masses or deformity about bilateral lower extremities. Effusion No effusion Alignment normal Range of motion Normal range of motion Quadriceps examination full (5/5) quadriceps strength bilaterally without signs of atrophy Patellar examination Normal patellar mobility Tenderness medial joint line Meniscus Postive medial Dl's/Thessaly's testing Stability Collateral and cruciate knee ligaments (ACL/PCL/LCL/MCL) are all intact with no significant laxity noted bilaterally Additional Testing no significant restriction in hip range of motion and no contribution to the knee complaints today Heel walking and Toe walking are WNL. IMAGING: Final results and radiologist's interpretation, available in the [facility] health record. Images were reviewed with the patient/family members in the office today. My personal interpretation of the performed imaging is no acute bony abnormality. IMPRESSION: No acute radiographic findings. 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 Gentle AROM and stretching as tolerated. Voltaren gel topically for inflammation Physical Therapy eval and treat Ortho follow up with me in 1 month as needed. Detailed instructions were reviewed with the patient and all questions were answered in detail. Patient voiced understanding and compliance with the above plan. We discussed emergent need to return to the express care or go to the emergency department. We discussed red flags associated with this condition and emergent treatment if they present. Henrry Sims PA-C documented in this encounter [facility] 02-08-2024 History of Present illness Narrative Radiology Service Progress Note PATIENT NAME: Kacey Allison DATE OF SERVICE: February 08, 2024 TIME: 5:40 PM PATIENT IDENTITY VERIFICATION COMPLETED USING TWO (2) IDENTIFIERS: Name and Date of confirmed by patient verbally. FALL SCREENING: Has the patient had 2 falls in the last year or 1 fall with injury or currently using an Ambulatory Assistive Device (Walker, Cane, Wheelchair, Crutches, etc.)? No PATIENT GENDER DATA: Female. status: : No status: NO. PATIENT RELEVANT IMPLANT DATA REVIEWED: Not Applicable PATIENT PRESENTS WITH AN IMPLANTABLE OR ATTACHED OUTDOOR ADVENTURE INSTRUCTOR: No RADIOLOGY DEPARTMENT: General X-ray: Exam(s) Completed: Lower Extremity X-Ray(s): Knee, AP / Lat / Tunne / Merchant Right and Wt. Bearing PERIPHERAL IV DATA: Not applicable SIGNED BY: Emile Mays February 08, 2024 5:40 PM documented in this encounter [facility] 02-08-2024 Note HNO ID: [id number] Author: ITA MELVIN Tech Service: ? Author Type: Tobacco Stripping Machine Operator Type: Progress Notes Filed: 02/08/2024 17:40 Note Text: Radiology Service Progress Note PATIENT NAME: Kacey Allison DATE OF SERVICE: February 08, 2024 TIME: 5:40 PM PATIENT IDENTITY VERIFICATION COMPLETED USING TWO (2) IDENTIFIERS: Name and Date of confirmed by patient verbally. FALL SCREENING: Has the patient had 2 falls in the last year or 1 fall with injury or currently using an Ambulatory Assistive Device (Walker, Cane, Wheelchair, Crutches, etc.)? No PATIENT GENDER DATA: Female. status: : No status: NO. PATIENT RELEVANT IMPLANT DATA REVIEWED: Not Applicable PATIENT PRESENTS WITH AN IMPLANTABLE OR ATTACHED OUTDOOR ADVENTURE INSTRUCTOR: No RADIOLOGY DEPARTMENT: General X-ray: Exam(s) Completed: Lower Extremity X-Ray(s): Knee, AP / Lat / Tunne / Merchant Right and Wt. Bearing PERIPHERAL IV DATA: Not applicable SIGNED BY: Emile Mays February 08, 2024 5:40 PM [facility] 05-30-2022 History of Present illness Narrative Director Community Organization offered: Patient declines. Kacey is a 26 year old who presents for an annual gynecologic exam without complaints. Menses: no menses - Mirena IUD. Contraception: IUD HPV vaccine: Yes Last Pap: 05/06/2021 normal HPV: N/A History of abnormal pap: No Last mammogram: never Sexually active: Not at this time. Has not been sexually active since most recent STD screen Patient concerns for STD exposure: No. OB History T0 L0 SAB0 IAB0 Ectopic0 Multiple0 Live Births0 Manager Drug History LMP: 04/24/2015, IUD Age at Menarche: Age at First : Age at Menopause: Manager Drug History Comments: Sexual Activity: Yes; Male; Mirena 04/01/2020 Contraception: I.U.D. PAST MEDICAL HISTORY Diagnosis Date Migraine PAST SURGICAL HISTORY Procedure Laterality Date INSERTION OF IUD 04/01/2020 PAST SURGICAL HISTORY OF surgery on both feet in 7th grade FAMILY HISTORY Problem Relation Age of Onset None Mother None Father No Known Problems Sister No Known Problems Brother SOCIAL HISTORY Social History Tobacco Use Smoking status: Never Smokeless tobacco: Never Vaping Use Vaping Use: Never used Substance Use Topics Alcohol use: Yes Drug use: No REVIEW OF SYSTEMS Abdomen: No abdominal pain, nausea, vomiting, diarrhea, or constipation. No bloating, early satiety, indigestion, or increased flatulence. Bladder: No dysuria, gross hematuria, urinary frequency, urinary urgency, or incontinence. Breast: No breast lumps, nipple d/c, overlying skin changes, redness or skin retraction. Allergies and current medication updated:Yes EXAM: BP 110/74 Ht 5' 6.5 (1.69m) Wt 180 lb 3.2 oz (81.7kg) LMP 04/24/2015 BMI 28.65 kg/(m^2). GENERAL: pleasant, female in no apparent distress HEENT: Normocephalic, atraumatic, mucus membranes moist, and no lesions NECK: Supple, full range of motion, no adenopathy, and thyroid normal DERMATOLOGY: Normal, without lesions, non-icteric, and non-hirsute BREAST: soft, non-tender, symmetric, no dominant mass, normal nipple-areolar complex, no lymphadenopathy, and no nipple discharge CHEST: Normal inspiratory effort ABDOMEN: soft, non-tender, and no masses PELVIC: external genitalia normal, normal Bartholin's glands, urethra, [place]'s glands, no vulvar lesions, no cervical lesions, good vaginal support, physiologic discharge present, normal appearing perineal body and perianal region BIMANUAL: uterus normal size, shape and consistency, no adnexal masses, and non-tender RECTOVAGINAL: deferred. NEURO: exam grossly non-focal EXTREMITIES: normal ASSESSMENT/PLAN: 1) Health maintenance: Pap/HPV up to date. Nutrition, exercise and routine health maintenance exams reviewed. HPV vaccine: completed series Flu shot today 2) Contraception: IUD. Contraceptive options reviewed and information provided. 3) STD screening: Declined STD check. 4) Follow up one year or sooner as needed Kourtney Chavarria DO documented in this encounter [facility] 02-02-2022 History of Present illness Narrative Director Community Organization offered: Patient declines. Kacey Allison is a 26 year old female who presents for problem visit - STD testing. HPI: Sexually active with 1 male partner for 7 years. Has IUD for contraception. Recently found out partner was unfaithful about 8-9 months ago. She has no symptoms today. Partner does not have any symptoms and no known exposure. OB History T0 L0 SAB0 IAB0 Ectopic0 Multiple0 Live Births0 Manager Drug History LMP: 04/24/2015, IUD Age at Menarche: Age at First : Age at Menopause: Manager Drug History Comments: Sexual Activity: Yes; Male; Mirena 04/01/2020 Contraception: I.U.D. PAST MEDICAL HISTORY Diagnosis Date Migraine PAST SURGICAL HISTORY Procedure Laterality Date INSERTION OF IUD 04/01/2020 PAST SURGICAL HISTORY OF surgery on both feet in 7th grade FAMILY HISTORY Problem Relation Age of Onset None Mother None Father No Known Problems Sister No Known Problems Brother Social History Tobacco Use Smoking status: Never Smoker Smokeless tobacco: Never Used Vaping Use Vaping Use: Never used Substance Use Topics Alcohol use: Yes Drug use: No Current Outpatient Medications Medication Sig levonorgestrel (MIRENA) 20 mcg/24 hours (5 yrs) 52 mg IUD 1 Each by INTRAUTERINE route as directed. SUMAtriptan (IMITREX) 100 mg tablet Take 100 mg by mouth as needed. busPIRone HCl 30 mg tablet Takes 10mg twice daily (Patient not taking: Reported on 02/02/2022 ) levonorgestrel (MIRENA) 20 mcg/24 hr (5 years) IUD 1 Each by INTRAUTERINE route one time only. (Patient not taking: Reported on 04/23/2021 ) No current facility-administered medications for this visit. Allergies As of Date: 02/02/2022 (No Known Allergies) Fully Assessed 02/02/2022 REVIEW OF SYSTEMS Expanded ROS: N/A Allergies and current medication updated:Yes EXAM: BP 120/78 Wt 185 lb 12.8 oz (84.3kg) LMP 04/24/2015 GENERAL: pleasant, female in no apparent distress HEENT: Normocephalic, atraumatic, mucus membranes moist and no lesions NECK: full range of motion DERMATOLOGY: Normal, without lesions, non-icteric and non-hirsute CHEST: Normal inspiratory effort ABDOMEN: soft, non-tender and no masses PELVIC: external genitalia normal, normal Bartholin's glands, urethra, [place]'s glands, no vulvar lesions, no cervical lesions, good vaginal support, physiologic discharge present, normal appearing perineal body and perianal region BIMANUAL: uterus normal size, shape and consistency, no adnexal masses, non-tender and no cervical motion tenderness NEURO: exam grossly non-focal EXTREMITIES: normal ASSESSMENT AND PLAN: Encounter Diagnosis ICD-10-CM 1. Screen for STD (sexually transmitted disease) Z11.3 SYPHILIS TOTAL W/REFLEX HEP B SURF AG SCRN GC/CHLAMYDIA DNA DET HIV 1 2 COMBO(AG/AB),WITH REFLEX TO DIFFERENTIATION HEP C AB IA W/CONF SCRN TRICHOMONAS PREP/ANTIGEN STD screening as above Patient doing OK and has good support RTO annual exam and PRN Kourtney Chavarria DO Medical Decision Making: Problems: Low: Acute, uncomplicated illness or injury Data: Unique test(s) ordered: 3+ Medical Decision Making Level: 3 - Low documented in this encounter [facility] Evaluation note No assessment inform ation available [facility] Work Phone: Evaluation note Diagnosis Screen for STD (sexually transmitted disease)- Primary Screening examination for venereal disease [facility] Diagnosis Encounter for gynecological examination (general) (routine) without abnormal findings- Primary Need for influenza vaccination Need for prophylactic vaccination and inoculation against influenza [facility] Diagnosis Acute pain of right knee- Primary Derangement of medial meniscus of right knee 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 Old bucket handle tear of medial meniscus Effusion of knee joint right Effusion of lower leg joint [facility] Diagnosis Pain Generalized pain [facility] Diagnosis Encounter for gynecological examination (general) (routine) without abnormal findings- Primary Screening for cervical cancer Screening for malignant neoplasm of the cervix Encounter for screening for human papillomavirus (HPV) Special screening examination for human papillomavirus (HPV) [facility] Diagnostic Procedure Only (Urgent) - Closed Specialty Diagnoses / Procedures Referred By Dany lombardi Referred To Contact XR IMAGING Diagnoses Pain Procedures XR KNEE GENERAL 4V AP BOTH/PA BOTH/LAT/MERC RIGHT RADIOLOGIC EXAM KNEE COMPLETE 4/MORE VIEWS Henrry Sims PA-C [id number] [place] [address] Xr Imaging [id number] Referral ID Status Reason Start Date Expiration Date V isits Requested Visits Authorized [id number] Closed Auto-Generate d Referral 02/08/2024 03/09/2025 1 1 [facility] Summary Purpose Family History No Family History Records FoundNo Family History Records Found Advance Directives No Advanced Directives Records FoundNo Advanced Directives Records Found Reason for Referral Specialty Diagnoses / Procedures Referred By Dany lombardi Referred To Contact [facility] Diagnoses Acute pain of right knee Derangement of medial meniscus of right knee 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 Effusion of knee joint right Procedures [facility] - CONSULT TO PHYSICAL THERAPY OFFICE/OUTPATIENT [facility] 60 MINUTES Henrry Sims PA-C [id number] [place] [address] [facility] [place] [address] [place] [address] Referral ID Status Reason Start Date Expiration Date Visits Requested Visits Authorized [id number] Pending Review Auto-Generat ed Referral 02/08/2024 02/07/2025 1 1 Additional Source Comments INFORMATION SOURCE (unrecogn ized section and content) DATE CREATED AUTHOR 12/26/2017 [facility] DATE CREATED AUTHOR AUTHOR'S EVON THOMAS 01/19/2025 [facility] Goals (unrecognized section and content) Goals may be documented in a n alternate section Source Comments (unrecognize d section and content) In the event this informatio n is protected by the Federal Confidentiality of Alcohol and Drug Abuse Patient Records regulations: The Federal rules restrict any use of the information to criminally investigate or prosecute any alcohol or drug abuse patient.[facility] the event this information is protected by the Federal Confidentiality of Alcohol and Drug Abuse Patient Records regulations: The Federal rules restrict any use of the information to criminally investigate or prosecute any alcohol or drug abuse patient.[facility] the event this information is protected by the Federal Confidentiality of Alcohol and Drug Abuse Patient Records regulations: The Federal rules restrict any use of the information to criminally investigate or prosecute any alcohol or drug abuse patient.[facility] the event this information is protected by the Federal Confidentiality of Alcohol and Drug Abuse Patient Records regulations: The Federal rules restrict any use of the information to criminally investigate or prosecute any alcohol or drug abuse patient.[facility] the event this information is protected by the Federal Confidentiality of Alcohol and Drug Abuse Patient Records regulations: The Federal rules restrict any use of the information to criminally investigate or prosecute any alcohol or drug abuse patient.[facility] Reason for Visit (unrecogniz ed section and content) Reason Comments STD testing Reason Onset Date Comments [facility] Immunizations 05/30/2022 Flu vaccination Reason Comments Knee Pain Reason Comments Radio Gen RMP Specialty Diagnoses / Procedures Referred By Contac t Referred To Contact XR IMAGING Diagnoses Pain Procedures XR KNEE GENERAL 4V AP BOTH/PA BOTH/LAT/MERC RIGHT RADIOLOGIC EXAM KNEE COMPLETE 4/MORE VIEWS Henrry Sims PA-C [id number] [place] [address] [place] [id number] Referral ID Status Reason Start Date Expiration Date V isits Requested Visits Authorized [id number] Closed Auto-Generate d Referral 02/08/2024 03/09/2025 1 1 Reason Comments [facility] Care Teams (unrecognized sec tion and content) Mental Retardation Nurse Relationship Specialty Start Date End Date Gagandeep Babb MD PCP - General Family Practice 11/03/14 Mental Retardation Nurse Relationship Specialty Start Date End Date Gagandeep Babb MD PCP - General Family Medicine 11/03/14 Mental Retardation Nurse Relationship Specialty Start Date End Date Gagandeep Babb MD PCP - General Family Medicine 11/03/14 Mental Retardation Nurse Relationship Specialty Start Date End Date Gagandeep Babb MD PCP - General Family Medicine 11/03/14 Mental Retardation Nurse Relationship Specialty Start Date End Date Gagandeep Babb MD PCP - General Family Medicine 11/03/14 FOR RECORDS PERTAINING TO PATIENTS WHO ARE OR HAVE BEEN ENROLLED IN A CHEMICAL DEPENDENCY/SUBSTANCEABUSE PROGRAM, SOME INFORMATION MAY BE OMITTED. This clinical summary was aggregated from multiple sources. Caution should be exercised in using it in the provision of clinical care. This summary normalizes information from multiple sources, and as a consequence, information in this document may materially change the coding, format and clinical context of patient data. In addition, data may be omitted in some cases. CLINICAL DECISIONS SHOULD BE BASED ON THE PRIMARY CLINICAL RECORDS. [facility] [employer] [facility]. provides no warranty or guarantee of the accuracy or completeness of information in this document.
[2025-02-06 12:30] LABS: Hematocrit 38.1 % (37-47); Hemoglobin 12.5 g/dL (12.0-15.0); Immature Granulocytes Count 0.000 X10^3/uL (0.0-0.0); Mean Corp Hgb Conc 32.8 g/dL (32-36); Mean Corpuscular Volume 95.0 fL (81-99); Mean Platelet Vol. 10.2 fl (6.2-12.0); NRBC Flagged by Analyzer 0 % (0-5); Platelet Count 274 K/mm3 (150-450); RBC Distribution Width CV 12.5 % (11.6-14.6); RBC Distribution Width SD 43.7 fl (35.1-43.9); Red Blood Count 4.01 M/mm3 (4.2-5.4); White Blood Count 3.1 K/mm3 (4.4-11.0)
[2025-02-06 13:24] LABS: Anion Gap 11 (5-15); BUN 7 mg/dL (4-19); BUN/Creat Ratio 9.3 RATIO (10-20); Calcium,Total 9.4 mg/dL (7.6-11.0); Carbon Dioxide 25.3 mmol/L (21.0-32.0); Chloride 105 mmol/L (98-108); Glucose 78 mg/dL (70-99); Potassium 4.0 mmol/L (3.3-5.1)
== END | disposition home or self-care (01) ==
LOC: MFPLAB 10:02
PROVIDERS: PCP Family Medicine; Referring Provider Family Medicine; Visit Provider Family Medicine
DX: L65.9 Nonscarring hair loss, unspecified (principal)
CPT/HCPCS: 36415; 80048; 84443; 85025